=== PATIENT | female | born 1950 | race Caucasian/White ===

== ENCOUNTER → 2023-08-15 06:33 | Day surgery (SDC) | payer OTHER, SELFPAY | LOC: GI 06:33 | PROVIDERS: ATTENDING PHYSICIAN Specialist | DX: K62.1 Rectal polyp (principal); K57.30 Diverticulosis of large intestine without perforation or abscess without bleeding; R10.31 Right lower quadrant pain | CPT/HCPCS: 45385; 88305 ==

== ENCOUNTER → 2024-04-29 15:05 | Outpatient (REF) | payer OTHER, SELFPAY | LOC: WDC 15:05 | PROVIDERS: ATTENDING PHYSICIAN Obstetrics & Gynecology Gynecologic Oncology; FAMILY PHYSICIAN Family Medicine; REFERRING PHYSICIAN Internal Medicine Hematology & Oncology | DX: Z12.31 Encounter for screening mammogram for malignant neoplasm of breast (principal); C55 Malignant neoplasm of uterus, part unspecified | CPT/HCPCS: 72040; 77063; 77067 ==

== ENCOUNTER → 2024-06-30 14:30 | Outpatient (REF) | payer OTHER, SELFPAY | LOC: MRI 3T 14:30 | PROVIDERS: ATTENDING PHYSICIAN Physical Medicine & Rehabilitation; FAMILY PHYSICIAN Physician Assistant Medical | DX: M54.12 Radiculopathy, cervical region (principal) | CPT/HCPCS: 72141 ==

== ENCOUNTER → 2024-12-11 11:22 | Outpatient (REF) | payer OTHER, SELFPAY | LOC: HWRAD 11:22 | PROVIDERS: ATTENDING PHYSICIAN Family Medicine | DX: R10.9 Unspecified abdominal pain (principal); M54.6 Pain in thoracic spine; M54.50 Low back pain, unspecified | CPT/HCPCS: 72072; 72110; 76775 ==

== ENCOUNTER 2025-02-08 14:42 | Emergency (ER) | payer OTHER, SELFPAY ==
[2025-02-08 14:43] VITALS: BP 108/68
[2025-02-08 15:07] LABS: Hematocrit 43.6 % (37.0-47.0); Hemoglobin 14.4 g/dL (12.0-16.0); Mean Corp Hgb Conc. 33.0 g/dL (33.0-37.0); Mean Corpuscular Volume 88.1 fL (81.0-99.0); Nucleated Red Blood Cells % 0 %; Platelet Count 177 10^3/uL (130-400); Red Cell Dist. Width 13.6 % (11.5-14.5)
[2025-02-08 15:18] LABS: ALT (SGPT) 34 U/L (0-35); AST (SGOT) 46 U/L (14-36); Albumin 4.1 g/dl (3.5-5.0); Alkaline Phosphatase 57 U/L (38-126); Blood Urea Nitrogen 16 mg/dl (7-17); Calcium 8.8 mg/dl (8.4-10.2); Carbon Dioxide 22 mmol/L (22-30); Chloride 97 mmol/L (98-107); Glucose 86 mg/dl (70-99); Lipase 22 U/L (23-300); Potassium 4.0 mmol/L (3.5-5.1); Sodium 129 mmol/L (135-145); Total Protein 7.0 g/dl (6.3-8.2); eGFR > 60.00
--- NOTE | 2025-02-08 18:05 | EDRN ---
Odalys ESPINOZA in room w/ pt.
--- NOTE | 2025-02-08 18:09 | ED.GENMED ---
History of Present Illness
General
Chief Complaint: Abdominal Symptoms
Time Seen by Provider: 02/08/25 18:02
History of Present Illness
History of Present Illness:
74-year-old female with history of hyperlipidemia, GERD, and uterine cancer status post total hysterectomy now in remission presents to the emergency department for evaluation of diarrhea for the past 5 days. Feeling increasingly dizzy. Has been
not tolerating significant fluid intake other than small sips of water and no solid foods. She denies any current abdominal pain but states she has pain prior to bowel movements. Bowel movements are watery and she reports diffuse bodyaches as well
as fever. Denies any recent suspicious food intake. No recent antibiotics or hospital admissions in the past 90 days. No ill contacts at home.
Past History
Past History
ED Past Medical History: Hypothyroidism and Other (uterine cancer)
ED Past Surgical History: Gynecological, Orthopedic and Tonsilectomy
Social History
Tobacco: Former smoker
Alcohol: Occasional
Drug: None
Personal:
Living: with family
Employment: Retired
Family History
Family History: Other
Review of Systems
Review of Systems
Allergies reviewed?: Yes
All Other Systems: ROS reviewed and negative except as documented in HPI and ROS
Phy Exam
Physical Exam
Physical Exam:
GEN: Well appearing, NAD, WDWN
HEENT: Oral mucosa moist, no scleral icterus
Cardiac: Regular rate and rhythm, no murmur
Lung: No respiratory distress, no tachypnea
Abdomen: Soft, mild diffuse tenderness mostly in the lower abdomen, no rigidity or peritoneal signs
MSK: No gross deformity or injuries
Skin: Good color, no pallor or jaundice, no rashes
Neuro: AO x3, moves all extremities freely
Psych: Calm, cooperative
Course
Orders/Labs/Results
Orders:
Orders
02/08/25 14:58
Complete Blood Count/With Diff Urgent
Comprehensive Metabolic Panel Urgent
Lipase Urgent
02/08/25 18:09
Dextrose 5%/0.45%Sodchl 500 ml [D5/0.45%NaCl] 500 ml IV 500 mls/hr
Lactated Ringers [Lr] 1,000 ml IV BOLUS
02/08/25 18:49
C difficile Antigen & Toxins Urgent
[facility] Source: Feces/Stool
Specimen Description:
Date Specimen was Collected: 02/08/25
Time Specimen was Collected: 18:45
Stool Culture Urgent
[facility] Source: Feces/Stool
Specimen Description:
Date Specimen was Collected: 02/08/25
Time Specimen was Collected: 18:45
Abnormal Lab Results
02/08/25
14:58
WBC 4.3 L 10^3/uL
(4.8-10.8)
Absolute Lymphs (auto) 0.9 L 10^3/uL
(1.2-3.4)
Lymphocytes % 20.1 L %
(20.5-51.1)
Monocytes % 11.5 H %
(1.7-9.3)
Sodium 129 L mmol/L
(135-145)
Chloride 97 L mmol/L
(98-107)
AST 46 H U/L
(14-36)
Lipase 22 L U/L
(23-300)
02/08/25 14:58
02/08/25 14:58
Vital Signs
Initial and Last Documented VS:
Initial Vital Signs
Temp Pulse Resp BP Pulse Ox
100.1 F 98 18 108/68 97
02/08/25 14:43 02/08/25 14:43 02/08/25 14:43 02/08/25 14:43 02/08/25 14:43
Last Documented Vital Signs
Temp Pulse Resp BP Pulse Ox
99.1 F 90 16 123/60 94
02/08/25 18:46 02/08/25 20:06 02/08/25 20:06 02/08/25 20:06 02/08/25 20:06
MDM/Problems Addressed
MDM/Problems Addressed:
Suspect the patient has acute infectious diarrhea evidenced by her fever and persistent diarrhea for the past 5 days. She is clinically well-appearing and was given IV fluids in the ED, feels improvement from a standpoint of dizziness and overall
malaise. Will start her empirically on antibiotics given the stool specimens have been provided. She does have allergies that limit use of penicillins or macrolides thus we will treat with Cipro pending stool studies. She has no significant
abdominal tenderness thus I have low clinical suspicion for acute surgical pathology and CT imaging is not indicated
*Pulse Oximetry
SaO2: 97
Oxygen Mode of Delivery: Room air
Patient hypoxic: no
*Critical Care Note
Total Time (30-74mins, 75-104mins- exclusive of procedures): Not Applicable
ED Attending Note
-
Portions of this chart may have been created with voice recognition software.� Occasional wrong word or��sound alike� substitutions may have occurred due to the inherent limitations of voice recognition software.
Discharge Plan
Departure
Patient Disposition: Home (Routine Discharge)
Date of Disposition: 02/08/25
Time of Disposition: 19:53
Patient with high blood pressure during this ER visit?: No
Discharge Problem:
Diarrhea
Instructions: Diarrhea in teens and adults
Prescriptions:
New
ciprofloxacin HCl [Cipro] 500 mg tablet
500 mg PO BID 5 Days Qty: 10 0RF
No Action
escitalopram oxalate 20 MG tablet
20 mg PO DAILY
thyroid (pork) [[place] Thyroid] 60 MG tablet
60 mg PO Q72H
Patient Comments:
alternates with 30mg, day 1=60mg, day2&3=30mg, day 4=60mg
thyroid (pork) [[place] Thyroid] 30 MG tablet
30 mg PO Q72H
Patient Comments:
alternates with 60mg, day 1=60mg, day2&3=30mg, day 4=60mg
thyroid (pork) [[place] Thyroid] 30 MG tablet
30 mg PO Q72H
Patient Comments:
alternates with 60mg, day 1=60mg, day2&3=30mg, day 4=60mg
amlodipine 2.5 MG tablet
2.5 mg PO DAILY Qty: 14 0RF
Referrals:
Bruna Rae MD [Family Provider, Family Practice]
Interventions
Interventions:
*Risk Screen - Suicide Last Done: 02/08/25 14:44
*General Assessment Last Done: 02/08/25 18:26
*Neglect/Abuse Screening Last Done: 02/08/25 18:26
*ED- Fall Risk Assessment Last Done: 02/08/25 18:26
*ED COVID-19 Vaccine History Last Done: 02/08/25 18:26
*ED Influenza Vaccine History Last Done: 02/08/25 18:26
*Nursing Disposition Last Done: 02/08/25 20:35
ST-Pruomq-Ijjvxvjzwf Assessment Last Done: 02/08/25 18:46
Discharge Date and Time
Discharge Date/Time: 02/08/25 20:35
Print Language: [id number]
[2025-02-08 18:26] VITALS: BMI 29.6
[2025-02-08] MEDS: D5/0.45%NACL 500 IV (18:38)
[2025-02-08] MEDS: LR 1000 IV (18:38)
[2025-02-08 18:46] VITALS: BP 131/67
[2025-02-08 20:06] VITALS: BP 123/60
== END 2025-02-08 20:35 | disposition home or self-care (01) ==
LOC: EMR 14:42
PROVIDERS: Emergency Medicine; EMERGENCY PHYSICIAN Emergency Medicine; FAMILY PHYSICIAN Family Medicine
DX: R19.7 Diarrhea, unspecified (principal); E78.00 Pure hypercholesterolemia, unspecified; K21.9 Gastro-esophageal reflux disease without esophagitis; E03.9 Hypothyroidism, unspecified; Z85.42 Personal history of malignant neoplasm of other parts of uterus; Z87.891 Personal history of nicotine dependence; Z90.710 Acquired absence of both cervix and uterus
CPT/HCPCS: 99282; 96360; 96361; 80053; 83690; 85025; 87045; 87046; 87077; 87324; 87427; 87449